=== PATIENT | male | born 1945 | race Asian ===

== ENCOUNTER 2019-10-17 09:55 | Inpatient (IN) | payer MEDICAID, OTHER ==
[~2019-10-17] VITALS: Ht 157.5 cm; Wt 53.5 kg
[2019-10-17] MEDS ORDERED: SODIUM CHLORIDE 0.9% 1,000 ML IV ONE (10:42)
[2019-10-17 10:48] LABS: Basophils # (auto) 0.1 10 ^3/uL (0-0.2); Basophils % (auto) 0.8 % (0.0-2.0); Eosinophils # (auto) 0 10 ^3/uL (0-0.8); Eosinophils % (auto) 0.4 % (0.0-7.0); Hematocrit 43.5 % (41.0-53.0); Hemoglobin 14.8 g/dL (13.5-17.5); Lymphocytes # (auto) 0.5 10 ^3/uL (0.4-5.4); Lymphocytes % (auto) 6.6 % (10.0-50.0); Mean Corpuscular Hemoglobin 31.5 pg (28.0-32.0); Mean Corpuscular Volume 92.6 fL (80.0-100.0); Monocytes # (auto) 0.4 10 ^3/uL (0-1.3); Monocytes % (auto) 5.6 % (0.0-12.0); Neutrophils % (auto) 86.6 % (37.0-80.0); Nucleated Red Blood Cells % 0.1 %; Platelet Count (auto) 205 10^3/uL (140-450); Red Cell Distribution Width 14.7 % (11.8-14.3); White Blood Cell 6.9 10^3/uL (4.4-10.8)
[2019-10-17 11:08] LABS: INR 1.04 (0.9-1.15); Partial Thromboplastin Time 30.4 sec (23.64-32.05)
[2019-10-17 11:15] LABS: Albumin 3.2 g/dL (3.4-5.0); Bilirubin, Total 1.2 mg/dL (0.2-1.0); Calcium 8.1 mg/dL (8.5-10.1); Potassium 3.6 mmol/L (3.5-5.1); Total Protein 7.2 g/dL (6.4-8.2)
[2019-10-17] MEDS ORDERED: SODIUM CHLORIDE 0.9% 1,000 ML IV SCH (12:45)
[2019-10-17] MEDS ORDERED: NITROGLYCERIN 0.4 MG SL TAB SL PRN (12:45)
[2019-10-17] MEDS ORDERED: hydrALAZINE HCL 20 MG/ML VL IV PRN (12:45)
[2019-10-17] MEDS ORDERED: MORPHINE SULF INJ 2 MG/ML SYRINGE 1ML IV PRN (12:45)
[2019-10-17] MEDS ORDERED: CLOPIDOGREL BISULFATE 75 MG TAB PO ONE (13:00)
--- NOTE | 2019-10-17 14:10 | NUR ---
Telemetry admit from ER DAVIDE ARNOLD admitted to Telemetry unit after SBAR received. Patient oriented to MATTEO EGAN, primary RN, unit, room, bed, and unit policies regarding patient care and visiting hours. Patient now on continuous telemetry monitoring, tele box # 30. Patient weighed by bedscale and encouraged to call if they need something. All questions and concerns addressed, patient verbalized understanding.
[2019-10-17 14:23] LABS: Urine Bacteria NONE SEEN /hpf (None Seen); Urine Blood Negative /uL (Negative); Urine Specific Gravity 1.016 (1.001-1.035); Urine WBC None Seen /hpf (0 - 3)
[2019-10-17 16:30] VITALS: BP 112/67
[2019-10-17 17:00] VITALS: BP 138/79
[2019-10-17] MEDS: SODIUM CHLORIDE 0.9% 1,000 ML IV SCH (18:00)
[2019-10-17] MEDS: TAMSULOSIN HYDROCHLORIDE 0.4 MG CAP PO SCH (18:22)
--- NOTE | 2019-10-17 19:15 | NUR ---
OPENING SHIFT NOTE Assumed care of patient who is A&O x4. Currently on room air. Denies pain at this time. Patients primary language is Greek, however he does follow simple commands given in Serbian and makes request in Serbian. Patient is experiencing difficulty forming sentences at this time. Bed is in low locked position with side rails up x2. Call light is within reach and patient instructed to call for assistance when needed. Bed alarm on for patient safety. Will continue to monitor for changes PRN.
--- NOTE | 2019-10-17 19:42 | NUR ---
SWALLOW EVALUATED. PATIENT IS ABLE TO INITIAL AND COMPLETE SWALLOW BUT VERY SLOWLY. PATIENT HAS OWN TEETH. ABLE TO TOLERATE PUREE DIET TEXTURE WITH THIN LIQUIDS WITH NO OVERT SIGNS OR SYMPTOMS OF ASPIRATION. TRIAL OF MECHANICAL SOFT UNSAFE FOR PATIENT. NURSING NOTIFIED.
[2019-10-17] MEDS ORDERED: LORazepam 2MG/ML-1ML VIAL IV PRN (21:15)
[2019-10-17] MEDS: ATORVASTATIN 20 MG TAB PO SCH (21:58)
[2019-10-17] MEDS ORDERED: ATORVASTATIN 20 MG TAB PO SCH (22:00)
[2019-10-17 22:12] VITALS: BP 145/93
[2019-10-17 23:26] LABS: Cholesterol 152 mg/dL (< 200)
[2019-10-17 23:28] LABS: HDL Cholesterol 79 mg/dL (40-59); LDL Cholesterol 74 mg/dL (< 100); Triglycerides 51 mg/dL (< 150)
--- NOTE | 2019-10-18 01:30 | NUR ---
Patient is calling multiple times, however is unable to form a sentence to explain needs. Using hand gestures, suggesting he needs his urinal. Patient provided his urinal multiple times, but does not urinate in it. Patient requests urinal to be removed and is incontinent onto absorbant pads placed on bed. Patient cleaned and absorbant pads changed after each episode of incontinence. Patient denies pain and SOB. He is able to follow simple commands in Vietnamese; however his primary language is Tanzanian. Patient successfully formed a sentence in Vietnamese on two different occasions: once to request a snack and again to request "something to go to the bathroom in". Patients needs met each time.
[2019-10-18 02:01] VITALS: BP 134/88
[2019-10-18 05:30] VITALS: BP 135/73
[2019-10-18] MEDS: SODIUM CHLORIDE 0.9% 1,000 ML IV SCH (05:38)
--- NOTE | 2019-10-18 06:20 | NUR ---
Rounds Patient found attempting to get out of bed. Linens and gown are wet with urine and IV had been pulled out. Catheter is intact; pressure dressing applied. Patient cleansed, linens and gown changed. Patient repositioned for comfort. Bed alarm on for safety and patient instructed to call for assistance when needed. IV insertion IV access obtained, via clean sterile technique by inserting 20 gauge catheter at right forearm after 1 attempt. IV secured properly. No trauma to site. Patient tolerated well. note: IVF resumed as ordered.
--- NOTE | 2019-10-18 07:10 | NUR ---
OPENING SHIFT NOTE Assumed care of patient who is A&O x2. Currently on room air. Denies pain at this time. Patients primary language is Wallisian, however he does follow some simple commands given in Macanese and makes request in Macanese. Patient is experiencing difficulty forming sentences at this time. Bed is in low locked position with side rails up x2. Call light is within reach and patient instructed to call for assistance when needed. pt keeps pointing to communication bored regarding suctioning, but nodes when asked if he means brushing his teeth, offered to brush teeth pt refused, pt keeps calling as soon as light is turned off. Bed alarm on for patient safety. Will continue to monitor for changes PRN
[2019-10-18 09:00] VITALS: BP 148/81
[2019-10-18] MEDS: CLOPIDOGREL BISULFATE 75 MG TAB PO SCH (09:44)
--- NOTE | 2019-10-18 10:30 | NUR ---
patient family at bedside
--- NOTE | 2019-10-18 10:56 | NUR ---
patient taken to mri
--- NOTE | 2019-10-18 11:30 | NUR ---
Back from MRI
[2019-10-18 14:19] VITALS: BP 156/82
--- NOTE | 2019-10-18 14:45 | NUR ---
PT ATTEMPTED TO GET OUT OF BED, TAKING OFF TELE MONITOR AND HOSPITAL GOWN
--- NOTE | 2019-10-18 15:15 | NUR ---
PATIENT MOVED INTO SITTER ROOM
[2019-10-18] MEDS ORDERED: LISI2.5T47 PO (15:38)
[2019-10-18] MEDS ORDERED: OXYB5TAB24 PO (15:39)
[2019-10-18] MEDS ORDERED: TAMS1CAP25 PO (15:40)
[2019-10-18] MEDS ORDERED: ATO40T PO (15:41)
[2019-10-18] MEDS ORDERED: CLOP75TA41 PO (15:41)
--- NOTE | 2019-10-18 15:46 | NUR ---
MD BARBOZA ROUNDED ON PT
--- NOTE | 2019-10-18 15:46 | NUR ---
FOUND MEDICATIONS AT BEDSIDE RECONCILED MEDICATIONS AND PUT IN OHARMACY BAG, SIGNED BY TWO RN PT UNABLE TO SIGN
--- NOTE | 2019-10-18 15:56 | NUR ---
BROUGHT MEDICATIONS TO PHARMACY AND PUT POM ARMBAND ON PT
[2019-10-18 17:00] VITALS: BP 136/85
[2019-10-18] MEDS: ASPirin-EC 81 mg tab PO SCH (17:15)
[2019-10-18] MEDS: TAMSULOSIN HYDROCHLORIDE 0.4 MG CAP PO SCH (17:15)
--- NOTE | 2019-10-18 19:30 | NUR ---
Opening Shift Note Assumed care of patient, awake and alert. No S/S of distress/SOB or pain. Instructed on POC and to call for assist PRN, will continue to monitor for changes Q1hr and PRN.
--- NOTE | 2019-10-18 19:45 | NUR ---
Patient is aphasic, seems to nod when asked questions, but does not seem to fully understand. Patient is calm and eating apple sauce at the moment. Sitter at bedside.
[2019-10-18 22:00] VITALS: BP 129/78
[2019-10-18] MEDS: ATORVASTATIN 20 MG TAB PO SCH (22:20)
[2019-10-19 05:49] VITALS: BP 138/75
--- NOTE | 2019-10-19 07:11 | NUR ---
OPENING SHIFT NOTE Assumed care of patient who is A&O x2. Currently on room air. Denies pain at this time. Patients primary language is North Korean, however he does follow some simple commands given in Ugandan and makes request in Ugandan. Patient is experiencing difficulty forming sentences at this time. Bed is in low locked position with side rails up x2. Call light is within reach and patient instructed to call for assistance when needed. sitter at bedside
[2019-10-19 09:04] VITALS: BP 139/81
[2019-10-19] MEDS: ASPirin-EC 81 mg tab PO SCH (09:32)
[2019-10-19] MEDS: CLOPIDOGREL BISULFATE 75 MG TAB PO SCH (09:32)
[2019-10-19 13:44] VITALS: BP 140/83
[2019-10-19] MEDS ORDERED: ASP81EC PO (15:50)
[2019-10-19] MEDS ORDERED: ATO40T PO (15:50)
[2019-10-19] MEDS ORDERED: CLOP75TA41 PO (15:50)
--- NOTE | 2019-10-19 16:05 | NUR ---
spoke with md valencia in precence of foster care case manager chary, per md discharge is to snf if accepting fcility takes him having a sitter, otherwise spoke with pt son and explained he will have to go home on home health, this discharge is pending clearance from md fajardo (neuro) after EEG results and md bentley (cardio) after YESENIA results
--- NOTE | 2019-10-19 16:31 | NUR ---
Patient refused Pt. EAMON Lazar was notified. Addendum: 10/19/19 at 1632 by MEGHANN BAKER PTT Amended: Links added.
--- NOTE | 2019-10-19 16:42 | NUR ---
PER MD MOORE HE CANT WAIT TO DO YESENIA UNTILL TUESDAY WITH ORGANIZATIONAL RESEARCH CONSULTANT AND NEEDS TOO BE TRANSFERED TO ICU TO BE DONE
--- NOTE | 2019-10-19 16:44 | NUR ---
CALLED MD MOORE PER MD AND COMPUTER EDUCATION PROFESSOR YESENIA CAN BE DONE AT BEDSIDE
[2019-10-19 17:07] VITALS: BP 135/74
--- NOTE | 2019-10-19 17:15 | NUR ---
CALLED LEATHA JONA [phone] TO OBTAIN VERBAL CONSENT LEFT MESSAGE
--- NOTE | 2019-10-19 17:30 | NUR ---
CALLED PT SON AGAIN TO OBTAIN VERBAL CONSENT NO ANSWER LEFT MESSAGE
[2019-10-19] MEDS: TAMSULOSIN HYDROCHLORIDE 0.4 MG CAP PO SCH (17:37)
--- NOTE | 2019-10-19 17:45 | NUR ---
MD JOHNSON ROUNDED ON PATIENT STATED YESENIA WONT BE DONE TODAY
--- NOTE | 2019-10-19 17:56 | NUR ---
MD MOORE PAGED TO MAKE HIM AWARE YESENIA WILL NOT BE DONE TODAY PER ELIZABETH HE WAS GOING TO CALL HIM TO MAKE HIM AWARE THAT YESENIA WONT BE DONE TODAY
--- NOTE | 2019-10-19 18:00 | NUR ---
D/C Planning Per SS consult for SNF placement is unable to accept patient for rehab to arrange home health for safety evaluation and physical therapy and to deliver Bedside commode, walker, and wheelchair to patient home. Placed followed up called to [facility], [facility], [facility], [facility] and [facility]. Per multiple representatives at the facilities patient needs to be without a sitter for 48hrs. Faxed order [facility]. Per Tabitha with [facility]:( [phone]) they will see patient within 24-48hrs upon d/c day. Faxed order to [facility]. Per Lili with [facility]:( [phone]) order has been received and they are pending authorization. Faxed Order to [facility] requesting authorization for [facility].
--- NOTE | 2019-10-19 19:30 | NUR ---
Opening Shift Note Report received from day shift. Per report, patient still waiting for YESENIA. Also awaiting clearance from cardio and neuro, social science manager to arrange D/C planning. Assumed care of patient, awake and alert mostly to self only. No S/S of distress/SOB or pain. Instructed on POC and to call for assist PRN, will continue to monitor for changes Q1hr and PRN.
[2019-10-19 21:00] VITALS: BP 152/83
[2019-10-19] MEDS ORDERED: ASPirin-EC 81 mg tab PO SCH (21:15)
[2019-10-19] MEDS: ATORVASTATIN 20 MG TAB PO SCH (22:18)
--- NOTE | 2019-10-19 23:30 | NUR ---
Patient's son called, updated with patient's status after verification of password. Procedure and anesthesia telephone consent for YESENIA requested. Another RN witnessed. Care continued.
[2019-10-20 05:00] VITALS: BP 142/73
--- NOTE | 2019-10-20 06:57 | NUR ---
IV access obtained, via clean sterile technique by inserting 20 gauge catheter at left forearm after 1 attempt. IV secured properly. No trauma to site. Patient tolerated well. No untoward incident noted during the shift lab technician. Patient has no signs nor symptoms of shortness of breath, no facial grimace for pain. Patient needs attended to. Sitter still at bedside for patient safety. Report to be given to oncoming RN.
[2019-10-20 09:00] VITALS: BP 149/80
[2019-10-20 09:02] VITALS: BP 134/75
[2019-10-20] MEDS ORDERED: LIDOCAINE VISCOUS 2% 15ML UD ONE (09:25)
--- NOTE | 2019-10-20 09:30 | NUR ---
Per ICU nurse patient will get a YESENIA tomorrow, and can have diet.
--- NOTE | 2019-10-20 09:39 | NUR ---
Dr. Marilou Pederson paged regarding to inform that YESENIA will be done tomorrow. Awaiting to call back.
[2019-10-20] MEDS ORDERED: MIDAZOLAM HCL 1MG/1ML-2 ML VIAL IV ONE (09:45)
[2019-10-20] MEDS: ASPirin-EC 81 mg tab PO SCH (09:56)
[2019-10-20] MEDS: CLOPIDOGREL BISULFATE 75 MG TAB PO SCH (09:56)
--- NOTE | 2019-10-20 10:09 | NUR ---
PT Patient was sent down for a procedure as per EAMON Suarez during morning PT visit. Addendum: 10/20/19 at 1010 by DELROY CHEATHAM PTT Amended: Links added.
[2019-10-20 13:00] VITALS: BP 147/77
--- NOTE | 2019-10-20 14:10 | NUR ---
Received a call from Dr. Pederson , patient can have diet. Noted and carried it out.
[2019-10-20 17:33] VITALS: BP 143/79
[2019-10-20] MEDS: TAMSULOSIN HYDROCHLORIDE 0.4 MG CAP PO SCH (17:54)
--- NOTE | 2019-10-20 19:35 | NUR ---
opening note pt has a sitter at bedside. pt is confused, and is A&O to self. pt does not show s/s of distress or discomfort. respirations are even and nonlabored on room air.
[2019-10-20 22:00] VITALS: BP 123/78
--- NOTE | 2019-10-20 22:50 | NUR ---
pt resting comfortably in semi fowlers position with HOB at 30 degrees. no s/s of pain or discomfort. sitter is at bedside.
[2019-10-20] MEDS: ATORVASTATIN 20 MG TAB PO SCH (22:53)
[2019-10-21 05:00] VITALS: BP 140/93
--- NOTE | 2019-10-21 06:55 | NUR ---
pt resting in semi fowlers position with HOB 30 degrees. resp are even and non labored on room air. bed is in low locked position with call light within reach. sitter is currently at bedside. pt does not show s/s of distress or discomfort.
[2019-10-21 08:36] VITALS: BP 159/84
[2019-10-21] MEDS ORDERED: fentaNYL CITRATE 100 MCG/2 ML VL IV ONE (09:45)
[2019-10-21] MEDS ORDERED: MIDAZOLAM HCL 1MG/1ML-2 ML VIAL IV ONE (09:45)
[2019-10-21] MEDS ORDERED: LIDOCAINE VISCOUS 2% 15ML UD MT SCH (09:45)
--- NOTE | 2019-10-21 09:45 | NUR ---
OFF UNIT PATIENT SENT TO ICU FOR YESENIA, REPLACED RIGHT FOREARM IV TO RIGHT AC, TRANSFERRED PATIENT WITHOUT COMPLICATIONS.
--- NOTE | 2019-10-21 09:50 | NUR ---
PT ARRIVED TO ICU UNIT FOR YESENIA PROCEDURE. SUPPLY CHAIN PROJECT MANAGER AT BEDSIDE ALONG WITH THIS RN AND DR. JOHNSON. PT IS AWAKE AND IS ABLE TO NOD HEAD BUT IS NOT VERBALIZING. VS: BP 191/95, HR 59, RR 14, O2SAT 93%. 12.5 MCG FENTANYL GIVEN. BUBBLE STUDY DONE. WILL CONTINUE TO MONITOR.
[2019-10-21] MEDS: CLOPIDOGREL BISULFATE 75 MG TAB PO SCH ×2 (10:00→12:00)
[2019-10-21] MEDS: ASPirin-EC 81 mg tab PO SCH ×2 (10:00→12:01)
--- NOTE | 2019-10-21 10:00 | NUR ---
PT VITAL SIGNS POST PROCEDURE: HR: 62, RR 13, BP 175/98, 94%O2SAT. SUCTION DONE. NO S/S OF DISTRESS. PT IS AWAKE AND NODS BUT IS NON-VERBAL. PT TOLERATED PROCEDURE WELL.
[2019-10-21] MEDS ORDERED: fentaNYL CITRATE 100 MCG/2 ML VL IM ONE (10:15)
--- NOTE | 2019-10-21 10:25 | NUR ---
SPOKE WITH PT'S NURSE THAT PROCEDURE IS DONE, MONITORED FOR A LITTLE WHILE, AND IS READY TO RETURN TO FLOOR.
--- NOTE | 2019-10-21 12:01 | NUR ---
LATE MEDICATION ADMINISTRATION PATIENT ADMINISTRATED ASPIRIN EC 81MG AND CLOPIDOGREL 75MG AT 1200 RELATED TO PATIENT BEING OFF UNIT AND AT A PROCEDURE DURING MEDICATION ADMINISTRATION AT 1000.
[2019-10-21 12:58] VITALS: BP 118/80
--- NOTE | 2019-10-21 14:07 | NUR ---
SNF PLACEMENT: FAXED ALL NECESSARY PAPERWORK INCLUDING, D/C SUMMARY, H AND P, DISCHARGE ORDER, FACESHEET, MED LIST AND CHEST XRAY TO LIST OF SNF FACILITIES PROVIDED BY [employer]PER[employer]. AWAIT RESPONSE FROM ACCEPTING FACILITY.
[2019-10-21 17:00] VITALS: BP 101/77
--- NOTE | 2019-10-21 19:20 | NUR ---
opening note sitter at bedside. pt resting in semi fowlers position with eyes open. pt is A&Ox1 to self. resp are even and non labored on room air. bed in low locked position, call light within reach.
[2019-10-21] MEDS: TAMSULOSIN HYDROCHLORIDE 0.4 MG CAP PO SCH (19:36)
[2019-10-21 22:00] VITALS: BP 113/70
--- NOTE | 2019-10-21 22:00 | NUR ---
pt tolerated crushed medication in applesauce.
[2019-10-21] MEDS: ATORVASTATIN 20 MG TAB PO SCH (22:38)
--- NOTE | 2019-10-22 00:10 | NUR ---
pt awake, in semi fowlers position. pt remains agitated, attempting to pull himself out of bed. sitter is at bedside. pt is Alert to self.
--- NOTE | 2019-10-22 03:20 | NUR ---
pt resting in semi fowlers position with eyes closed. sitter remains at bedside.
[2019-10-22 05:00] VITALS: BP 123/79
--- NOTE | 2019-10-22 08:15 | NUR ---
Opening Note Assumed care of patient, he is alert and oriented to self only. Patient can speak his name and obey commands at this time. POC discussed with patient, bed alarm on, in lowest, locked position, call light within reach. Sitter at bedside. Will continue to monitor Q1h and PRN.
[2019-10-22 08:31] VITALS: BP 136/88
[2019-10-22] MEDS: ASPirin-EC 81 mg tab PO SCH (10:12)
[2019-10-22] MEDS: CLOPIDOGREL BISULFATE 75 MG TAB PO SCH (10:12)
--- NOTE | 2019-10-22 12:01 | NUR ---
PT Patient was asleep during morning PT visit. Addendum: 10/22/19 at 1201 by DELROY CHEATHAM PTT Amended: Links added.
[2019-10-22 12:30] VITALS: BP 137/75
--- NOTE | 2019-10-22 12:57 | NUR ---
Spoke to Dr. Corie Martin on telephone Informed him that sitter was necessary last night as patient continued to try to get up and out of bed, not following instructions. He informed this RN that patient will have to be discharged home today with home health as mentioned in the discharge summary.
[2019-10-22] MEDS ORDERED: DIVA1TAB58 PO (12:58)
--- NOTE | 2019-10-22 13:30 | NUR ---
at bedside, informed her of plan to discharge home. She agrees. She spoke to Brianne with [facility] and will be agreeable to their home care.
--- NOTE | 2019-10-22 13:30 | NUR ---
Spoke to Dr. Corie Martin Orders received, read back and verified to send patient home on hospice. Will change orders as appropriate.
--- NOTE | 2019-10-22 16:28 | NUR ---
D/C Planning Per SS consult for hospice. Information and choice was given to patient. Per patient Jaimie she would like [facility] that doctor Veronica is recommending. Patient Jaimie verbalize understanding d/c plan. Faxed orders to [facility]. Per Brianne order was received and service to start upon d/c day. Transportation has been arrange with [facility] between 18:00-19:00 via [employer] EAMON Qiu was informed.
--- NOTE | 2019-10-22 16:43 | NUR ---
Brianne with [facility] advised me time of transportation has changed to 17:00-18:00. RN was informed.
--- NOTE | 2019-10-22 17:40 | NUR ---
Discharge instructions given as ordered. Encourage to follow up with PMD as instructed. All questions and concerns addressed. Patient verbalized understanding. Medication reconciliation form completed and copy given to patient. Home medications held in Pharmacy returned to patient. IV removed with catheter intact, pressure dressing applied. Telemetry unit returned to ICU. Patient picked up by [facility] with all personal belongings, accompanied by staff and family member, consulted by [facility]. No distress noted at time of departure.
== END 2019-10-22 17:40 | disposition hospice, home (50) | DRG 45 ==
LOC: EDBD 09:55 → ER 09:55 → TELE 09:56 → TELE-CENTR 14:03
PROVIDERS: ADMIT Nurse Practitioner Acute Care; ATTEND Internal Medicine
PROC: B24BZZ4 Ultrasonography of Heart with Aorta, Transesophageal (ICD-10-PCS; principal; 2019-10-21)
DX: I63.81 Other cerebral infarction due to occlusion or stenosis of small artery (principal); E44.1 Mild protein-calorie malnutrition; I69.954 Hemiplegia and hemiparesis following unspecified cerebrovascular disease affecting left non-dominant side; R00.1 Bradycardia, unspecified; R47.01 Aphasia; I10 Essential (primary) hypertension; N40.0 Benign prostatic hyperplasia without lower urinary tract symptoms; Z51.5 Encounter for palliative care; E78.00 Pure hypercholesterolemia, unspecified; I99.8 Other disorder of circulatory system; E78.5 Hyperlipidemia, unspecified; Z68.21 Body mass index [BMI] 21.0-21.9, adult; Z79.82 Long term (current) use of aspirin; Z79.02 Long term (current) use of antithrombotics/antiplatelets; Z82.3 Family history of stroke; Z82.49 Family history of ischemic heart disease and other diseases of the circulatory system
CPT/HCPCS: 36415; 70450; 70551; 71045; 80053; 80061; 81001; 83036; 83605; 83735; 84443; 84484; 85025; 85610; 85730; 87040; 92610; 93005; 93306; 93312; 93886; 95819; 96360; 97116; 97530; G0378; J2250